=== PATIENT | male | born 1945 | race Two or more races ===

== ENCOUNTER 2017-05-25 14:08 | Inpatient (IN) | END 2017-05-28 15:40 | disposition home health service (06) | DRG 470 ==

== ENCOUNTER 2017-12-21 03:11 | Inpatient (IN) | END 2017-12-28 20:20 | disposition home health service (06) | DRG 481 ==

== ENCOUNTER → 2018-12-11 | Outpatient (CLI) | payer MEDICARE, OTHER ==
[~2018-12-11] MED LIST: ALEN70TA5 PO; ASPI325T32 PO; ATOR20TA38 PO; DOCU-144 PO; FOLI-49 PO; GABA100C14 PO; HYDR-4011 PO; MET25 PO; OMEP40CA6 PO; POLY17PO6 PO; TAMS-14 PO
== END | disposition home or self-care (01) ==
LOC: C/S 15:46
PROVIDERS: ATTEND Orthopaedic Surgery
DX: M25.561 Pain in right knee (principal); M25.461 Effusion, right knee; Z96.651 Presence of right artificial knee joint
CPT/HCPCS: 73700